=== PATIENT | female | born 1975 | race Caucasian/White ===

== ENCOUNTER 2016-12-06 20:37 | Emergency (ER) | payer MEDICAID ==
[~2016-12-06] VITALS: Ht 154.9 cm; Wt 107.6 kg
[~2016-12-06 20:37] MED LIST: CEFD300C37 PO; FEXO60TA24 PO
[2016-12-06 22:31] LABS: BLOOD UREA NITROGEN 30 mg/dL (7-18)
[2016-12-06] MEDS ORDERED: ALBU90AE PO (23:25)
[2016-12-07] MEDS ORDERED: ACETAMINOPHEN 325 MG TABLET ONE (00:49)
[2016-12-07 00:53] VITALS: BP 140/98
[2016-12-07] MEDS ORDERED: ACETAMINOPHEN 325 MG TABLET PO ONE (01:00)
== END 2016-12-07 00:56 | disposition home or self-care (01) ==
LOC: ED 23:59
DX: R07.2 Precordial pain (principal); M62.830 Muscle spasm of back; I10 Essential (primary) hypertension; J45.909 Unspecified asthma, uncomplicated; Z87.440 Personal history of urinary (tract) infections
CPT/HCPCS: 36415; 71020; 80048; 82040; 85025; 85379; 93005

== ENCOUNTER 2018-01-22 17:09 | Emergency (ER) | payer MEDICAID ==
[~2018-01-22] VITALS: Ht 154.9 cm; Wt 125.6 kg
[~2018-01-22 17:09] MED LIST changes: +ALBU90AE PO
[2018-01-22 17:11] VITALS: BP 181/109
[2018-01-22] MEDS ORDERED: FAMOTIDINE 20 MG TABLET PO ONE (18:00)
[2018-01-22] MEDS ORDERED: FAMOTIDINE 20 MG TABLET ONE (19:09)
[2018-01-22 19:37] LABS: BASOPHILS # (AUTO) 0.05 x10^3/uL (0-0.1); BASOPHILS % (AUTO) 1 % (0-1); EOSINOPHILS # (AUTO) 0.32 x10^3/uL (0-0.4); EOSINOPHILS % (AUTO) 3 % (1-7); LYMPHOCYTES # (AUTO) 2.07 x10^3/uL (1-3.4); LYMPHOCYTES % (AUTO) 19 % (22-44); MD NO; MEAN CORPUSCULAR HEMOGLOBIN 30.4 pg (27.0-34.8); MEAN CORPUSCULAR HGB CONC 33.6 g/dL (32.4-35.8); MEAN CORPUSCULAR VOLUME 90.6 fL (80-100); MEAN PLATELET VOLUME 7.9 fL (7.4-10.4); MONOCYTES # (AUTO) 1.16 x10^3/uL (0.2-0.8); MONOCYTES % (AUTO) 11 % (2-9); NEUTROPHILS % (AUTO) 67 % (42-75); PLATELET COUNT 295 x10^3/uL (130-400); RED BLOOD COUNT 4.47 x10^6/uL (3.82-5.3); RED CELL DISTRIBUTION WIDTH 14.6 % (9.6-15.2)
[2018-01-22 19:48] LABS: ALANINE AMINOTRANSFERASE 21 U/L (12-78); ANION GAP 5 mmol/L (5-15); CALCIUM 8.4 mg/dL (8.5-10.1); CHLORIDE 107 mmol/L (98-107); CREATININE 0.76 mg/dL (0.55-1.02)
[2018-01-22 19:50] LABS: ALKALINE PHOSPHATASE 88 U/L (45-117); BILIRUBIN,TOTAL 0.2 mg/dL (0.2-1.0); TOTAL PROTEIN 6.1 g/dL (6.4-8.2)
== END 2018-01-22 20:20 | disposition home or self-care (01) ==
LOC: ED 19:30
DX: L24.9 Irritant contact dermatitis, unspecified cause (principal); I10 Essential (primary) hypertension; J45.909 Unspecified asthma, uncomplicated
CPT/HCPCS: 36415; 80053; 85025; 99284; J7512

== ENCOUNTER 2019-02-16 07:04 | Emergency (ER) | payer SELFPAY ==
[~2019-02-16] VITALS: Ht 154.9 cm; Wt 129.2 kg
--- NOTE | 2019-02-16 07:28 | NUR ---
PT AMBULATED TO BATHROOM W STEADY GATE
--- NOTE | 2019-02-16 07:33 | NUR ---
PT HAS OF BLOODY URINE AND FLANK SINCE YESTERDAY. PT HAS TENDERNESS WHEN PALPATING BACK. NO BELLY TENDERNESS. PT STATES HISTORY OF KIDNEY INFECTION. MD AT BEDSIDE. UA OBTINED
[2019-02-16] MEDS ORDERED: PHENAZOPYRIDINE 200 MG TABLET ONE (07:40)
[2019-02-16] MEDS ORDERED: KETOROLAC 30 MG/1 ML ONE (07:40)
[2019-02-16 07:58] LABS: BASOPHILS # (AUTO) 0.19 x10^3/uL (0-0.1); BASOPHILS % (AUTO) 1 % (0-1); EOSINOPHILS # (AUTO) 0.19 x10^3/uL (0-0.4); EOSINOPHILS % (AUTO) 1 % (1-7); LYMPHOCYTES # (AUTO) 1.96 x10^3/uL (1-3.4); LYMPHOCYTES % (AUTO) 14 % (22-44); MD NO; MEAN CORPUSCULAR HEMOGLOBIN 30.6 pg (27.0-34.8); MEAN CORPUSCULAR HGB CONC 32.7 g/dL (32.4-35.8); MEAN CORPUSCULAR VOLUME 93.6 fL (80-100); MEAN PLATELET VOLUME 8.2 fL (7.4-10.4); MONOCYTES # (AUTO) 1.44 x10^3/uL (0.2-0.8); MONOCYTES % (AUTO) 10 % (2-9); NEUTROPHILS # (AUTO) 10.36 x10^3/uL (1.8-6.8); NEUTROPHILS % (AUTO) 73 % (42-75); PLATELET COUNT 272 x10^3/uL (130-400); RED CELL DISTRIBUTION WIDTH 13.4 % (9.6-15.2)
[2019-02-16] MEDS ORDERED: PHENAZOPYRIDINE 100 MG TABLET PO ONE (08:00)
[2019-02-16] MEDS ORDERED: KETOROLAC 30 MG/1 ML IM ONE (08:00)
[2019-02-16 08:03] LABS: CULTURE INDICATED? YES; MICROSCOPIC INDICATED
[2019-02-16 08:05] LABS: ALBUMIN 3.1 g/dL (3.4-5.0); ANION GAP 7 mmol/L (5-15); CALCIUM 9.1 mg/dL (8.5-10.1); CHLORIDE 107 mmol/L (98-107); CREATININE 0.83 mg/dL (0.55-1.02)
[2019-02-16] MEDS ORDERED: CEFTRIAXONE PMX 1GM/50ML 50 ML ONE (08:55)
[2019-02-16] MEDS ORDERED: SODIUM CHLORIDE FLUSH 10ML SYR IVF ONE (09:00)
[2019-02-16] MEDS ORDERED: CEFTRIAXONE PMX 1GM/50ML 50 ML IVPB ONE (09:00)
--- NOTE | 2019-02-16 09:08 | NUR ---
BLOOD CX DRAWN BEFORE ABX
[2019-02-16] MEDS ORDERED: LISI-167 PO (09:18)
--- NOTE | 2019-02-16 09:23 | NUR ---
2L O2 NASAL CANNULA APPLIED. RA DESAT TO 85% WHILE SLEEPING. SPO2 NOW 95% ON 2L
--- NOTE | 2019-02-16 09:48 | NUR ---
PT RESTING COMFORTABLE W FRIEND AT SIDE. VS STABLE.
--- NOTE | 2019-02-16 10:28 | NUR ---
Patient/Caregiver given discharge instructions and they have confirmed that they understand the instructions. Patient ambulatory with steady gait.
[2019-02-16 10:33] VITALS: BP 149/90
== END 2019-02-16 11:12 | disposition home or self-care (01) ==
LOC: ED 08:15
DX: N10 Acute pyelonephritis (principal); I10 Essential (primary) hypertension; J45.909 Unspecified asthma, uncomplicated; Z72.9 Problem related to lifestyle, unspecified; F17.200 Nicotine dependence, unspecified, uncomplicated
CPT/HCPCS: 36415; 80048; 81001; 82040; 83605; 84145; 84703; 85025; 87040; 87086; 96372; 96374; 99283; J0696; J1885

== ENCOUNTER 2019-10-19 01:06 | Inpatient (IN) | payer MEDICAID ==
[~2019-10-19] VITALS: Ht 154.9 cm; Wt 118.4 kg
[~2019-10-19 01:06] MED LIST changes: +LISI-167 PO
--- NOTE | 2019-10-19 01:29 | NUR ---
Pt arrives from home via [facility] d/t cough, fever, bodyaches and headache since last night. Pt keeps eyes closed, cries and says "owie" with RN intervention. Pt with tachypnea. Pt on room air at 95%. Pt in gown and on full monitors. Pt noted to be diaphoratic and febrile at 100.4f. No cough noted during triage assessment. Labs drawn including first set of cultures.
[2019-10-19] MEDS ORDERED: ACETAMINOPHEN 500 MG TABLET ONE (01:51)
[2019-10-19] MEDS ORDERED: SODIUM CHLORIDE 0.9% 1,000ML IVBOLUS ONE (02:00)
[2019-10-19] MEDS ORDERED: ACETAMINOPHEN 500 MG TABLET PO ONE (02:00)
[2019-10-19 02:10] LABS: BASOPHILS # (AUTO) 0.02 x10^3/uL (0-0.1); BASOPHILS % (AUTO) 0 % (0-1); EOSINOPHILS # (AUTO) 0.01 x10^3/uL (0-0.4); EOSINOPHILS % (AUTO) 0 % (1-7); LYMPHOCYTES # (AUTO) 0.84 x10^3/uL (1-3.4); LYMPHOCYTES % (AUTO) 9 % (22-44); MD NO; MEAN CORPUSCULAR HGB CONC 32.9 g/dL (32.4-35.8); MEAN CORPUSCULAR VOLUME 94.1 fL (80-100); MEAN PLATELET VOLUME 7.9 fL (7.4-10.4); MONOCYTES # (AUTO) 1.04 x10^3/uL (0.2-0.8); MONOCYTES % (AUTO) 11 % (2-9); NEUTROPHILS # (AUTO) 7.59 x10^3/uL (1.8-6.8); NEUTROPHILS % (AUTO) 80 % (42-75); PLATELET COUNT 250 x10^3/uL (130-400); RED BLOOD COUNT 4.62 x10^6/uL (3.82-5.3); RED CELL DISTRIBUTION WIDTH 13.4 % (9.6-15.2)
--- NOTE | 2019-10-19 02:10 | NUR ---
Pt ambulatory to bedside commode with standyby assist. Urine sent to lab. Fluids started. Tylenol given. Xray at bedside. Pt educated multiple times on purpose of medications and reason for not having a warm blanket. Pt off-on tearful and needs consistent verbal encouragement.
[2019-10-19 02:20] LABS: ALANINE AMINOTRANSFERASE 16 U/L (12-78); ALBUMIN 2.8 g/dL (3.4-5.0); ANION GAP 5 mmol/L (5-15); CALCIUM 8.8 mg/dL (8.5-10.1); CHLORIDE 104 mmol/L (98-107); CREATININE 0.62 mg/dL (0.55-1.02)
[2019-10-19 02:23] LABS: ALKALINE PHOSPHATASE 90 U/L (45-117); BILIRUBIN,TOTAL 0.3 mg/dL (0.2-1.0); TOTAL PROTEIN 6.2 g/dL (6.4-8.2)
[2019-10-19 02:24] LABS: MICROSCOPIC AUTO
[2019-10-19 02:26] LABS: CULTURE INDICATED? YES
[2019-10-19 02:51] LABS: TROPONIN I < 0.015 ng/mL (0.000-0.045)
--- NOTE | 2019-10-19 03:04 | NUR ---
Pt resting on gurney. Fluids finished. VS retaken. Pt HR 88, temp 99.2f. Pt reports she feels a little better. Aware of wait for lab results. Pt remains on full monitors.
--- NOTE | 2019-10-19 03:20 | NUR ---
MD at bedside. Plan to admit.
[2019-10-19] MEDS ORDERED: CEFTRIAXONE PMX 1GM/50ML 50 ML ONE (03:26)
--- NOTE | 2019-10-19 03:29 | NUR ---
Pt to CT.
[2019-10-19] MEDS ORDERED: CEFTRIAXONE PMX 1GM/50ML 50 ML IVPB ONE (03:30)
[2019-10-19] MEDS ORDERED: AZITHROMYCIN 500 MG in SODIUM CHLORIDE 0.9% 250 ML IV ONE (03:30)
--- NOTE | 2019-10-19 03:47 | NUR ---
Pt returned from CT. Rocephin started. VSS. Pt aware of plan for admit.
--- NOTE | 2019-10-19 04:40 | NUR ---
Second antibiotic started. VSS. Pt remains on room air. Pt asleep and noted to be snoring.
[2019-10-19] MEDS ORDERED: ONDANSETRON 2MG/ML, 2ML IVPush PRN (05:00)
[2019-10-19] MEDS ORDERED: hydrALAzine 20 MG/ML, 1ML IVPush PRN (05:00)
[2019-10-19] MEDS ORDERED: TRAZODONE 50MG TABLET PO PRN (05:00)
[2019-10-19] MEDS ORDERED: ENALAPRILAT 1.25 MG/ML, 1ML IVPush PRN (05:00)
[2019-10-19] MEDS ORDERED: NICOTINE 14MG/24 HR PATCH.TD24 TD ONE (05:30)
--- NOTE | 2019-10-19 05:37 | NUR ---
Report given to JOSELUIS Chatman Pt transported to [facility] with this RN and tech.
[2019-10-19 05:59] VITALS: BP 131/69
[2019-10-19 08:00] VITALS: BP 131/69
[2019-10-19] MEDS: CIPROFLOXACIN 500 MG TABLET PO SCH ×2 (08:30→20:51)
[2019-10-19] MEDS: FAMOTIDINE 20 MG TABLET PO SCH ×2 (08:30→20:51)
[2019-10-19] MEDS: ENOXAPARIN 30 MG/0.3 ML SQ SCH ×2 (08:30→16:35)
[2019-10-19] MEDS: ALBUTEROL HFA 90 MCG/SPRAY INH SCH ×3 (09:00→21:00)
[2019-10-19] MEDS: ACETAMINOPHEN 325 MG TABLET PO PRN ×2 (12:01→16:34)
[2019-10-19 14:01] VITALS: BP 151/91
[2019-10-19] MEDS: LISINOPRIL 10 MG TABLET PO SCH (16:34)
[2019-10-19 21:23] VITALS: BP 158/89
[2019-10-20 06:05] VITALS: BP 160/95
[2019-10-20 08:45] VITALS: BP 147/82
[2019-10-20] MEDS: ENOXAPARIN 30 MG/0.3 ML SQ SCH ×2 (08:45→19:58)
[2019-10-20] MEDS: LISINOPRIL 10 MG TABLET PO SCH (08:45)
[2019-10-20] MEDS: CIPROFLOXACIN 500 MG TABLET PO SCH ×2 (08:45→19:58)
[2019-10-20] MEDS: FAMOTIDINE 20 MG TABLET PO SCH ×2 (08:45→19:58)
[2019-10-20] MEDS: ALBUTEROL HFA 90 MCG/SPRAY INH SCH ×2 (08:50→21:00)
[2019-10-20 12:40] VITALS: BP 147/89
[2019-10-20 15:29] LABS: BASOPHILS # (AUTO) 0.02 x10^3/uL (0-0.1); BASOPHILS % (AUTO) 0 % (0-1); EOSINOPHILS # (AUTO) 0.05 x10^3/uL (0-0.4); EOSINOPHILS % (AUTO) 1 % (1-7); LYMPHOCYTES % (AUTO) 16 % (22-44); MD NO; MEAN CORPUSCULAR HEMOGLOBIN 31.3 pg (27.0-34.8); MEAN CORPUSCULAR HGB CONC 33.5 g/dL (32.4-35.8); MEAN CORPUSCULAR VOLUME 93.4 fL (80-100); MEAN PLATELET VOLUME 8.1 fL (7.4-10.4); MONOCYTES # (AUTO) 1.24 x10^3/uL (0.2-0.8); MONOCYTES % (AUTO) 15 % (2-9); NEUTROPHILS # (AUTO) 5.67 x10^3/uL (1.8-6.8); NEUTROPHILS % (AUTO) 69 % (42-75); PLATELET COUNT 221 x10^3/uL (130-400); RED BLOOD COUNT 4.47 x10^6/uL (3.82-5.3); RED CELL DISTRIBUTION WIDTH 13.3 % (9.6-15.2)
[2019-10-20 15:33] LABS: ANION GAP 6 mmol/L (5-15); CALCIUM 9.1 mg/dL (8.5-10.1); CHLORIDE 104 mmol/L (98-107); CREATININE 0.56 mg/dL (0.55-1.02)
[2019-10-20] MEDS: ACETAMINOPHEN 325 MG TABLET PO PRN (19:59)
[2019-10-20 20:39] VITALS: BP 145/85
[2019-10-21 02:28] VITALS: BP 125/57
[2019-10-21 06:01] LABS: BASOPHILS # (AUTO) 0.02 x10^3/uL (0-0.1); BASOPHILS % (AUTO) 0 % (0-1); EOSINOPHILS # (AUTO) 0.11 x10^3/uL (0-0.4); EOSINOPHILS % (AUTO) 1 % (1-7); LYMPHOCYTES # (AUTO) 1.56 x10^3/uL (1-3.4); LYMPHOCYTES % (AUTO) 20 % (22-44); MD NO; MEAN CORPUSCULAR HGB CONC 33.2 g/dL (32.4-35.8); MEAN CORPUSCULAR VOLUME 93.3 fL (80-100); MEAN PLATELET VOLUME 8.4 fL (7.4-10.4); MONOCYTES # (AUTO) 1.44 x10^3/uL (0.2-0.8); MONOCYTES % (AUTO) 18 % (2-9); NEUTROPHILS # (AUTO) 4.74 x10^3/uL (1.8-6.8); NEUTROPHILS % (AUTO) 60 % (42-75); PLATELET COUNT 231 x10^3/uL (130-400); RED BLOOD COUNT 4.39 x10^6/uL (3.82-5.3); RED CELL DISTRIBUTION WIDTH 13.4 % (9.6-15.2)
[2019-10-21 06:02] LABS: ANION GAP 5 mmol/L (5-15); CALCIUM 9.2 mg/dL (8.5-10.1); CHLORIDE 107 mmol/L (98-107); CREATININE 0.58 mg/dL (0.55-1.02)
[2019-10-21 06:12] VITALS: BP 162/84
[2019-10-21] MEDS: ALBUTEROL HFA 90 MCG/SPRAY INH SCH (07:58)
[2019-10-21] MEDS: CIPROFLOXACIN 500 MG TABLET PO SCH (08:18)
[2019-10-21] MEDS: LISINOPRIL 10 MG TABLET PO SCH (08:18)
[2019-10-21] MEDS: FAMOTIDINE 20 MG TABLET PO SCH (08:18)
[2019-10-21] MEDS: ENOXAPARIN 30 MG/0.3 ML SQ SCH (08:19)
[2019-10-21] MEDS ORDERED: NICOTINE 21 MG/24 HR PATCH.TD24 TD ONE (08:30)
[2019-10-21 12:41] VITALS: BP 156/99
[2019-10-21] MEDS ORDERED: CIPR500T87 PO (13:23)
[2019-10-21] MEDS ORDERED: LISI-167 PO (13:23)
== END 2019-10-21 14:05 | disposition home or self-care (01) | DRG 463 ==
LOC: ED 01:27 → EDIP 05:01 → 3WST 05:44 → 3N 10-20 21:45
PROVIDERS: ADMIT Family Medicine; ATTEND Internal Medicine
DX: N39.0 Urinary tract infection, site not specified (principal); R65.10 Systemic inflammatory response syndrome (SIRS) of non-infectious origin without acute organ dysfunction; E66.2 Morbid (severe) obesity with alveolar hypoventilation; E87.1 Hypo-osmolality and hyponatremia; Z68.42 Body mass index [BMI] 45.0-49.9, adult; B96.20 Unspecified Escherichia coli [E. coli] as the cause of diseases classified elsewhere; E04.2 Nontoxic multinodular goiter; F17.210 Nicotine dependence, cigarettes, uncomplicated; F31.9 Bipolar disorder, unspecified; I10 Essential (primary) hypertension; J45.909 Unspecified asthma, uncomplicated; J98.11 Atelectasis; K21.9 Gastro-esophageal reflux disease without esophagitis; K44.9 Diaphragmatic hernia without obstruction or gangrene; Z80.3 Family history of malignant neoplasm of breast; Z85.41 Personal history of malignant neoplasm of cervix uteri; R09.02 Hypoxemia; Z20.828 Contact with and (suspected) exposure to other viral communicable diseases
CPT/HCPCS: 36415; 71045; 71250; 76536; 80048; 80053; 81001; 83605; 83615; 83880; 84145; 84443; 84484; 85025; 87040; 87077; 87086; 87186; 93005; 93306; 96361; 96365; G0378; J0456; J0696; J1650; J7030; J7050